=== PATIENT | male | born 1995 | race Caucasian/White ===

== ENCOUNTER 2017-08-04 08:37 | Emergency (ER) | payer MEDICAID, OTHER ==
[~2017-08-04] VITALS: Ht 177.8 cm; Wt 94.2 kg
[~2017-08-04 08:37] MED LIST: ADDE10XR PO
[2017-08-04 08:39] VITALS: BP 138/64; PULSE 72; RESP 16; TEMP 97.7; O2SAT 99
--- NOTE | 2017-08-04 09:39 | PD ---
HPI Chief Complaint: ENT Complaint Time Seen by Provider: 09:10 Travel History International Travel<30 days: No Contact w/Intl Traveler<30days: No Traveled to known affect area: No History of Present Illness HPI 22-year-old male here with left ear pain 1 day. Denies fever or drainage from the ear. Reports decreased/muffled hearing. He has had multiple cerumen impactions in the past believes this is the cause. He also has had multiple ear infections in the past. Symptom severity is moderate. No aggravating or alleviating factors. PFSH Past Medical History ADD: Yes ADHD: Yes Asthma: Yes Weight (Kg): 3 Cancer: No Cardiovascular Problems: No Developmental Delay: No Diabetes: No Diminished Hearing: No Endocrine: No Genitourinary: No Headaches: Yes Hepatitis: No Hiatal Hernia: No Immune Disorder: No Musculoskeletal: Yes (RT WRIST INJURY) Psychiatric: Yes (ADHD) Reproductive: No Immunizations Current: Yes Migraines: No Seizures: No Thyroid Disease: No Ulcer: No Influenza Vaccination: No Past Surgical History Surgical History: No Previous Surgery AICD: No Appendectomy: No Section: Yes Cholecystectomy: No Joint Replacement: No Pacemaker: No Other Surgery: No Social History Alcohol Use: Yes (WEEKENDS) Tobacco Use: Yes (few cigs a week) Substance Use: Yes (MARIJUANA) Allergies-Medications (Allergen,Severity, Reaction): Coded Allergies: shrimp (Unverified Allergy, Severe, VOMITING, 08/04/17) Reported Meds & Prescriptions Reported Meds & Active Scripts Active No Active Prescriptions or Reported Medications Review of Systems Except as stated in HPI: all other systems reviewed are Neg General / Constitutional: No: Fever HENT: Positive: Earache Physical Exam Narrative GENERAL: Alert and well-appearing 22-year-old male SKIN: Warm and dry. HEAD: Normocephalic. EYES: No injection or drainage. ENT: Left cerumen impaction. No canal swelling or drainage. No mastoid tenderness. Hearing is grossly intact. NECK: Supple, trachea midline. No meningismus CARDIOVASCULAR: Regular rate and rhythm RESPIRATORY: Breath sounds equal bilaterally. No accessory muscle use. GASTROINTESTINAL: nondistended. MUSCULOSKELETAL: No cyanosis, or edema. Data Data Last Documented VS Vital Signs Date Time Temp Pulse Resp B/P (MAP) Pulse Ox O2 Delivery O2 Flow Rate FiO2 08/04/17 08:39 97.7 72 16 138/64 (88) 99 Orders Orders Ear Irrigation (08/04/17 09:34) MDM Medical Decision Making Medical Screen Exam Complete: Yes Emergency Medical Condition: Yes Differential Diagnosis Cerumen impaction, otitis media, otitis externa Narrative Course 22-year-old male here with left ear cerumen impaction. Ear irrigation was performed by mechanical technician. TM intact post procedure. Patient reports symptom improvement. He is stable and ready for discharge. Procedures Procedure Narrative Ear irrigation performed by mechanical technician Diagnosis Primary Impression: Cerumen impaction Qualified Codes: H61.22 - Impacted cerumen, left ear Referrals: Primary Care Physician Scripts No Active Prescriptions or Reported Meds Disposition: 01 DISCHARGE HOME Condition: Stable Usha Rosales Aug 04, 2017 09:39
== END 2017-08-04 10:28 | disposition home or self-care (01) ==
LOC: PHEFT 08:37
DX: H61.22 Impacted cerumen, left ear (principal); J45.909 Unspecified asthma, uncomplicated; F90.9 Attention-deficit hyperactivity disorder, unspecified type; F17.210 Nicotine dependence, cigarettes, uncomplicated; F12.90 Cannabis use, unspecified, uncomplicated
CPT/HCPCS: 99283